=== PATIENT | female | born 2000 | race African-American/Black ===

== ENCOUNTER 2018-04-26 14:30 | Day surgery (SDC) | payer OTHER ==
[~2018-04-26 14:30] MED LIST: CEFAZOLIN 2 GM/D5W RTU 2 GM/50 ML RTUPB IV PRN; SUCCINYLCHOLINE CHLORIDE INJ 200 MG/10 ML VIAL ONE
[2018-04-26 15:23] LABS: HEMATOCRIT 38.9 % (36.0-47.0); HEMOGLOBIN 13.6 g/dL (12.0-15.5); MEAN CORPUSCULAR HEMOGLOBIN 31.4 pg (27.0-33.4); MEAN CORPUSCULAR VOLUME 90 fl (80-97); PLATELET COUNT 165 10^3/uL (150-450); RED BLOOD COUNT 4.34 10^6/uL (3.72-5.28); RED CELL DISTRIBUTION WIDTH 13.3 % (11.5-14.0); WHITE BLOOD COUNT 5.4 10^3/uL (4.0-10.5)
[2018-04-26] MEDS ORDERED: LIDOCAINE 2% INJ-PF (20 MG/ML) 10 ML AMPUL ONE (18:44)
[2018-04-26] MEDS ORDERED: ONDANSETRON HCL INJ/PF 4 MG/2 ML SDV ONE (18:45)
[2018-04-26] MEDS ORDERED: HYDROMORPHONE HCL INJ/PF 2 MG/ML AMPULE ONE ×2 (18:45→22:15)
[2018-04-26] MEDS ORDERED: PROPOFOL INJ 200 MG/20 ML VIAL IV ONE (18:45)
[2018-04-26] MEDS ORDERED: MIDAZOLAM 2 MG/2 ML INJ ONE (18:45)
[2018-04-26] MEDS ORDERED: ACETAMINOPHEN 1,000 MG/100 ML RTUPB IV ONE (18:45)
[2018-04-26] MEDS ORDERED: DEXAMETHASONE SOD PHOSPHATE INJ 4 MG/1 ML VIAL ONE (18:45)
[2018-04-26] MEDS ORDERED: CEFAZOLIN 2 GM/D5W RTU 2 GM/50 ML RTUPB IV ONE (19:37)
[2018-04-26] MEDS ORDERED: ONDANSETRON HCL INJ/PF 4 MG/2 ML SDV IV PRN ×2 (19:51→21:24)
[2018-04-26] MEDS ORDERED: MEPERIDINE HCL/PF INJ 25 MG/1 ML DISP.SYRIN IV PRN (19:51)
[2018-04-26] MEDS ORDERED: PROMETHAZINE HCL INJ 25 MG/1 ML VIAL IV PRN ×2 (19:51)
[2018-04-26] MEDS ORDERED: FENTANYL CITRATE INJ/PF 100 MCG/2 ML AMPUL IV PRN ×2 (19:51)
[2018-04-26] MEDS ORDERED: DIPHENHYDRAMINE HCL 50 MG/ML VIAL IV PRN (19:51)
[2018-04-26] MEDS ORDERED: BUPIVACAINE HCL 0.5 % INJ/PF 30 ML SDV ONE (20:48)
[2018-04-26] MEDS ORDERED: MORPHINE SULFATE 10 MG/ML INJ IV PRN (21:24)
[2018-04-26] MEDS ORDERED: OXYCODONE-ACETAMINOPHEN 5-325 MG TABLET PO PRN (21:24)
--- NOTE | 2018-04-26 21:24 | Discharge Summary ---
Discharge Summary (SDC) - Discharge Final Diagnosis: Left radial neck fracture Date of Surgery: 04/26/18 Condition: Good Treatment or Instructions: Schedule Follow Up w/ Dr. Broderick Mayen @ [facility] to be seen in 10-14 days or as scheduled [place]: [place]: [place]: Ice and elevate Keep splint clean/dry/intact. If your fingers become numb please unwrap the Pravin wrap but leave the splint in place, if the sensation does not return within 30 minutes please return to the emergency department. May begin finger range of motion attempting to make full fist. Please use ibuprofen (Motrin or Advil) 600-800 mg every 8 hours as needed for pain or fever DO NOT TAKE w/ TORADOL may use once TORADOL complete. You may also use acetaminophen (Tylenol) 1000 mg every 4-6 hours as needed for pain or fever. Please be aware that many medications contain acetaminophen, do not exceed a total of 1000 mg of acetaminophen every 6 hours. If ibuprofen and acetaminophen are not sufficient for your pain you may take the Percocet/[place]. Please be aware that the Percocet/[place] does contain Tylenol. Stool softener of choice when on pain medication. Prescriptions: Ketorolac Tromethamine [Toradol 10 mg Tablet] 10 mg PO Q8HP PRN #12 tablet PRN Reason: Oxycodone HCl/Acetaminophen [Percocet 5-325 mg Tablet] 1 tab PO Q6 PRN #25 tab PRN Reason: Discharge Diet: As Tolerated Discharge Activity: No Lifting Over 10 Pounds, No Lifting/Push/Pulling Report the Following to Your Physician Immediately: Fever over 101 Degrees, Unusual Bleeding, Redness, Swelling, Warmth, Increased Soreness
--- NOTE | 2018-04-26 21:28 | Operative Report ---
Operative Report DATE OF SURGERY: 04/26/18 PREOPERATIVE DIAGNOSIS: Left radial neck fracture POSTOPERATIVE DIAGNOSIS: Same OPERATION: ORIF left radial neck SURGEON: MELISSA WHITESIDE ANESTHESIA: GA COMPLICATIONS: None ESTIMATED BLOOD LOSS: Minimal PROCEDURE: Indication for above procedure: 18-year-old female who sustained a fall while [place] on [facility]. Patient is a active duty [employer] she was seen at the emergency room where x-rays demonstrated a radial neck fracture. Patient was sent for follow- up with me which point we discussed findings and treatment options. After discussing risks and benefits joint decision was made to proceed with operative treatment. Procedure In Detail: Patient was seen and evaluated in the preoperative holding area. The upper extremity was initialized and marked. Patient received 2g of Ancef IV for bacterial prophylaxis. Patient was taken back to the operative room where transferred to the operative table and placed under general anesthesia. Once they were adequately anesthetized a nonsterile tourniquet was placed on the upper extremity. A surgical team debriefing was performed ensuring all instrumentation was available, the surgical procedure was discussed with possible concerns reviewed. The upper extremity was prepped with chlorhexidine and alcohol and draped in a sterile fashion. A timeout was done identifying correct patient, procedure and extremity everyone in attendance agree with this and verbalized no concerns. The extremity was exsanguinated the tourniquet was inflated to 250 mmHg. Longitudinal skin incision was made from the lateral epicondyle centered over the radial-capitellar joint. Blunt dissection was performed Reid's approach utilized the interval between the ECRB/EDC was established. Small capsulotomy was made in the lateral ulnar collateral ligament was carefully elevated but not detached from its origin. Significant hemarthrosis was noted and this was copiously irrigated with normal saline. The fracture of the radial neck was then identified with 100% displacement. The radial head was then placed back into position obtaining good cortical read from the intact neck. There was a small amount of bone loss anteriorly with impaction. Radiocapitellar joint demonstrated capitellar defect which was 8 mm x 1 mm in length. The fracture was then pinned into position to obtain fixation. C-arm fluoroscopy was then obtained confirming adequate reduction. The Acumed radial neck plate was then secured into position the forearm was placed in supination by 10 degrees and the plate placed laterally in the safe zone between the radial styloid and Mark's tubercle. Special attention was focused on maintaining pronation prior to plate placement to avoid PIN irritation. C-arm fluoroscopy was then obtained confirming appropriate placement of the plate. Fixation was then obtained with a nonlocking and locking screw. There was no evidence of intra-articular fracture line. Once adequate fixation was obtained bicortical screw was placed into the intact radial shaft. Forearm pronation/supination was performed confirming adequate reduction. There was no evidence of impingement at the proximal radial ulnar joint. No crepitus with range of motion. Fixation was then completed with a locking screw. While attempting placement of an additional bicortical screw the screw head broke and the most distal screw hole however there was adequate fixation and given the location it was determined the risks are higher than the benefits to proceed with removal. Final C-arm fluoroscopy was obtained confirming adequate reduction with druze of height. There was mild subluxation prior to capsular repair. No evidence of intra-articular hardware. No crepitation with pronation/supination or range of motion. Wound was then copiously irrigated with normal saline. The annular ligament was closed to the intact LUCL with #2 FiberWire. The extensor mechanism was closed with 0 Vicryl suture. Subcutaneous tissues closed with interrupted 4-0 Monocryl suture. Skin was closed with a running subcuticular 4-0 Monocryl reinforced with Dermabond and Steri-Strips. 30 cc of 0.5% bupivacaine without epinephrine was injected for postoperative pain control. Patient was placed in a posterior elbow splint. Sponge counts, instrument counts, needle counts were correct. Patient was then awoken from anesthesia. Transferred from the operating room table to the operating room stretcher. There was no intraoperative complications patient tolerated procedure well stable to PACU. Postoperative plan: Patient follow-up the office in 2 weeks. Patient will be placed in a hinged elbow brace locked at 45 degrees extension may begin range of motion with the forearm at neutral at 2 weeks postoperatively and then progressed to pronation supination 4 weeks postoperatively. We will increase extension 10 degrees/week with a goal of achieving full range of motion at 6 weeks postoperatively. Will obtain x-rays at follow-up.
[2018-04-26] MEDS ORDERED: FENTANYL CITRATE INJ/PF 100 MCG/2 ML AMPUL ONE (21:36)
[2018-04-26] MEDS: FENTANYL CITRATE INJ/PF 100 MCG/2 ML AMPUL IV PRN ×2 (21:37→21:50)
[2018-04-26] MEDS ORDERED: KETOROLAC TROMETHAMINE INJ/PF 30 MG/1 ML SDV ONE (22:14)
[2018-04-27 00:36] VITALS: BP 136/65
--- NOTE | 2018-04-27 09:47 | RADIOLOGY REPORT (SQ) ---
EXAM DESCRIPTION: ELBOW LEFT OVER 2 VIEWS COMPLETED DATE/TIME: 04/26/2018 10:11 pm REASON FOR STUDY: ORIF L ELBOW S52.132A DISP FX OF NECK OF LEFT RADIUS, INIT FOR CLOS FX COMPARISON: None. FLUOROSCOPY TIME: 1.5 minutes 7 digital C-arm images saved to PACS. TECHNIQUE: Intra-operative images acquired during surgical procedure to evaluate progress. NUMBER OF IMAGES: 7 digital C-arm images LIMITATIONS: None. FINDINGS: Imaging and fluoro during orthopedic procedure performed by Dr. Mayen. Please see the o perative report for further details IMPRESSION: Imaging and fluoro during orthopedic procedure performed by Dr. Mayen. Please see the operative report for further details COMMENT: Quality ID [id number]: Final reports for procedures using fluoroscopy that document radiation exp osure indices, or exposure time and number of fluorographic images (if radiation exposure indices are not available) Please consult full operative report of the attending physician for description of the procedure. TECHNICAL DOCUMENTATION: JOB ID: [id number] [employer]- All Rights Reserved Reading location - IP/workstation name: [email or web address]
--- NOTE | 2018-04-27 11:39 | RADIOLOGY REPORT (SQ) ---
EXAM DESCRIPTION: NO CHG FLUORO COMPLETE DATE/TIME: 04/26/2018 10:11 pm REASON FOR STUDY: ORIF L ELBOW S52.132A DISP FX OF NECK OF LEFT RADIUS, INIT FOR CLOS FX FINDINGS: Please see combined report for performance of procedure and radiologic supervision and int erpretation. IMPRESSION: Please see combined report for performance of procedure and radiologic supervision and i nterpretation. Reading location - IP/workstation name: [email or web address]
== END 2018-04-27 00:53 | disposition home or self-care (01) ==
LOC: 2N 14:30 → OROUT 14:30
PROVIDERS: ATTEND Orthopaedic Surgery
DX: S52.132A Displaced fracture of neck of left radius, initial encounter for closed fracture (principal); W01.0XXA Fall on same level from slipping, tripping and stumbling without subsequent striking against object, initial encounter; Z72.0 Tobacco use
CPT/HCPCS: 24665; 36415; 84703; 85027; 73080; C1713 ×4; C1769; J2250; J3490 ×2; J1100; J3010; J1885; J1170; J0330; J2405; J2704; J0690; J0131; 01740